=== PATIENT | male | born 1985 | race African-American/Black ===

== ENCOUNTER 2018-04-23 08:41 | Emergency (ER) | payer MEDICAID, OTHER ==
[~2018-04-23] VITALS: Ht 180.3 cm; Wt 72.6 kg
[2018-04-23 08:50] VITALS: BP 127/78
[2018-04-23] MEDS ORDERED: KETOROLAC TROMETH 60MG/2ML VIAL IM ONE (09:00)
== END 2018-04-23 09:42 | disposition home or self-care (01) ==
LOC: ER 08:44
DX: S33.5XXA Sprain of ligaments of lumbar spine, initial encounter (principal); X50.0XXA Overexertion from strenuous movement or load, initial encounter; Y93.89 Activity, other specified; Y92.89 Other specified places as the place of occurrence of the external cause; Y99.8 Other external cause status
CPT/HCPCS: 72100; 81002; 96372; 99284; J1885

== ENCOUNTER 2018-09-29 18:54 | Emergency (ER) | payer MEDICAID ==
[~2018-09-29] VITALS: Ht 180.3 cm; Wt 70.3 kg
[2018-09-29 19:31] VITALS: BP 115/64
[2018-09-29] MEDS ORDERED: IBUPROFEN 800 MG TAB PO ONE (23:45)
== END 2018-09-30 00:03 | disposition home or self-care (01) ==
LOC: ER 18:56
DX: S53.402A Unspecified sprain of left elbow, initial encounter (principal); X50.0XXA Overexertion from strenuous movement or load, initial encounter; Y93.89 Activity, other specified; Y99.8 Other external cause status; Y92.89 Other specified places as the place of occurrence of the external cause
CPT/HCPCS: 73080